=== PATIENT | female | born 1935 | race Two or more races ===

== ENCOUNTER 2020-01-29 14:20 | Outpatient (CLI) | payer OTHER ==
[2020-01-29 15:52] LABS: BASOPHILS # (AUTO) 0.1 /CMM (0.0-0.2); BASOPHILS % (AUTO) 1.3 % (0.0-2.0); EOSINOPHILS % (AUTO) 1.9 % (0.0-6.0); HEMATOCRIT 41 % (33-45); HEMOGLOBIN 13.5 g/dL (11.5-14.8); LYMPHOCYTES # (AUTO) 1.7 /CMM (0.8-4.8); LYMPHOCYTES % (AUTO) 20.2 % (20.0-44.0); MEAN CORPUSCULAR HGB CONC 33 g/dl (31.0-36.0); MEAN CORPUSCULAR VOLUME 92 fL (82-100); MONOCYTES # (AUTO) 0.7 /CMM (0.1-1.30); MONOCYTES % (AUTO) 8.1 % (2.0-12.0); NEUTROPHILS # (AUTO) 5.8 /CMM (1.8-8.9); NEUTROPHILS % (AUTO) 68.5 % (43.0-81.0); PLATELET COUNT (AUTO) 184 /CMM (150-450); WHITE BLOOD COUNT (AUTO) 8.5 K/uL (4.3-11.0)
[2020-01-29 16:20] LABS: ALBUMIN 3.5 g/dL (3.4-5.0); BILIRUBIN,TOTAL 0.3 mg/dL (0.2-1.0); CALCIUM, SERUM 8.8 mg/dL (8.5-10.1); CREATININE 0.9 mg/dL (0.6-1.3); POTASSIUM 4.3 mmol/L (3.5-5.1); TOTAL PROTEIN, SERUM 7.4 g/dL (6.4-8.2)
[2020-01-29 16:30] LABS: FREE T4 (FREE THYROXINE) 1.05 ng/dL (0.76-1.46); THYROID STIMULATING HORMONE 3.018 uIU/mL (0.358-3.74)
== END 2020-01-29 23:59 | disposition home or self-care (01) ==
LOC: MSC 14:20
PROVIDERS: ATTEND Internal Medicine
DX: F39 Unspecified mood [affective] disorder (principal); M19.90 Unspecified osteoarthritis, unspecified site; I48.91 Unspecified atrial fibrillation; F41.9 Anxiety disorder, unspecified; R32 Unspecified urinary incontinence; E87.1 Hypo-osmolality and hyponatremia; G31.84 Mild cognitive impairment of uncertain or unknown etiology; Z86.79 Personal history of other diseases of the circulatory system; R26.89 Other abnormalities of gait and mobility; I73.9 Peripheral vascular disease, unspecified; Z79.01 Long term (current) use of anticoagulants; Z79.899 Other long term (current) drug therapy
CPT/HCPCS: 36415; 80053-TC; 80162-TC; 82306; 84439-TC; 84443-TC; 85025-TC

== ENCOUNTER 2020-03-11 14:16 | Outpatient (CLI) | payer OTHER | END 2020-03-11 23:59 | disposition home or self-care (01) | LOC: MSC 14:16 | PROVIDERS: ATTEND Internal Medicine | DX: R06.02 Shortness of breath (principal); R42 Dizziness and giddiness; G31.84 Mild cognitive impairment of uncertain or unknown etiology; F39 Unspecified mood [affective] disorder; I48.91 Unspecified atrial fibrillation; M19.90 Unspecified osteoarthritis, unspecified site; F41.9 Anxiety disorder, unspecified; R32 Unspecified urinary incontinence; E87.1 Hypo-osmolality and hyponatremia; Z86.79 Personal history of other diseases of the circulatory system; R26.89 Other abnormalities of gait and mobility; I73.9 Peripheral vascular disease, unspecified; Z79.01 Long term (current) use of anticoagulants; Z79.899 Other long term (current) drug therapy ==

== ENCOUNTER → 2020-04-12 | Outpatient (CLI) | payer OTHER | END | disposition home or self-care (01) | LOC: MSC 15:00 | PROVIDERS: ATTEND Internal Medicine | DX: G31.84 Mild cognitive impairment of uncertain or unknown etiology (principal); F39 Unspecified mood [affective] disorder; I48.91 Unspecified atrial fibrillation; M19.90 Unspecified osteoarthritis, unspecified site; F41.9 Anxiety disorder, unspecified; R32 Unspecified urinary incontinence; E87.1 Hypo-osmolality and hyponatremia; R26.89 Other abnormalities of gait and mobility; I73.9 Peripheral vascular disease, unspecified; Z86.79 Personal history of other diseases of the circulatory system; E66.3 Overweight; Z71.3 Dietary counseling and surveillance; Z79.899 Other long term (current) drug therapy; Z79.01 Long term (current) use of anticoagulants ==